=== PATIENT | male | born 1955 | race Caucasian/White ===

== ENCOUNTER 2025-04-18 08:54 | Outpatient (AMB) | payer MEDICARE, MEDICAID, SELFPAY ==
--- NOTE | 2025-04-18 09:02 | MHC.OFFVIS ---
Intake Visit Reasons: s/p UTI with urinary retention Intake Note: New patient presents today for initial visit for s/p UTI with urinary retention Urology Medication:Finasteride,Tamsulosin Blood Thinner:None Antibiotic Allergies:None PVR:30ml Allergies No Known Allergies Allergy (Verified 04/18/25 09:03) Medication List - Last Reconciled 04/18/25 by Pina Haines MD finasteride (Proscar) 5 mg PO DAILY lisinopril 20 mg PO DAILY meclizine 25 mg PO TID simvastatin 20 mg PO BEDTIME tamsulosin 0.8 mg (2 x 0.4 mg) PO DAILY HPI Comments Details: 04/18/25 History of Present Illness - The patient is a 70-year-old male presenting for a new patient evaluation with a history of benign prostatic hyperplasia. - Benign Prostatic Hyperplasia (BPH): Managed with tamsulosin and finasteride. - Urinary Retention: Patient states that episode was over 15 years ago - patient denies prior prostate surgery. States that he has had elevated PSAs in the past - was unable to provide urine sample during today's visit, bladder scan PVR minimal. - Bladder Cancer: Diagnosed about a year and a half ago, states he had a recurrence May 2024 which was followed by bladder installations. Also had follow-up surveillance 3 months cystoscopy with his prior urologist - we will have office staff try to obtain records including bladder pathology. - Surveillance: Ongoing surveillance cystoscopies are necessary to monitor for recurrence of bladder cancer. - examination-digital rectal exam, the prostate was palpated noted to be enlarged and irregular Results - Bladder scan post-void residual: 30 mL [facility] Medical History UTI (urinary tract infection) Urinary retention Hypertension High cholesterol Review of Systems Const All systems reviewed & are unremarkable except as noted in HPI and below Reports no additional complaints Eyes Reports no additional complaints ENT Reports no additional complaints Card Reports no additional complaints Resp Reports no additional complaints GI Reports no additional complaints Reports as per HPI Musc Reports no additional complaints Skin/Breast Reports system reviewed and no additional complaints, except as documented Neuro Reports no additional complaints Psych Reports no additional complaints Endo Reports no additional complaints Phillip/Lymph Reports no additional complaints Aller/Immun Reports no additional complaints Physical Exam Const General: healthy appearing, no acute distress and well developed Orientation/consciousness: patient oriented x3 HEENT Head: Yes normocephalic and Yes atraumatic Eyes Conjunctivae: conjunctivae normal Neck Neck: Yes normal visual inspection Chest Chest palpation & inspection: normal inspection of the chest Resp Effort & Inspection: normal respiratory effort GI Inspection: Yes normal to inspection Other: Exam-enlarged prostate irregular right greater than left Neuro General: patient oriented x3 Psych Appearance: grossly normal Affect: normal affect Assessment & Plan Assessment & Plan (1) BPH loc w urin obs/LUTS: Code(s): N40.1 - Benign prostatic hyperplasia with lower urinary tract symptoms Category: Medical (2) Bladder carcinoma: Code(s): C67.9 - Malignant neoplasm of bladder, unspecified Category: Medical (3) H/O primary malignant neoplasm of urinary bladder: Code(s): Z85.51 - Personal history of malignant neoplasm of bladder Category: Medical (4) Screening PSA (prostate specific antigen): Code(s): Z12.5 - Encounter for screening for malignant neoplasm of prostate Category: Medical Plan Plan - Order an ultrasound of the kidneys, bladder, and prostate to evaluate the urinary tract. - Schedule a surveillance cystoscopy to monitor for bladder cancer recurrence. - Obtain a urine sample and perform blood work for PSA levels. Orders: Orders US bladder Today N40.1 - Benign prostatic hyperplasia with lower urinary tract symptoms, Z12.5 - Encounter for screening for malignant neoplasm of prostate, Z85.51 - Personal history of malignant neoplasm of bladder US renal BI Today N40.1 - Benign prostatic hyperplasia with lower urinary tract symptoms, Z12.5 - Encounter for screening for malignant neoplasm of prostate, Z85.51 - Personal history of malignant neoplasm of bladder PSA,Total (Free>4and<10) Today N40.1 - Benign prostatic hyperplasia with lower urinary tract symptoms, Z12.5 - Encounter for screening for malignant neoplasm of prostate, Z85.51 - Personal history of malignant neoplasm of bladder Medications: New meclizine 25 mg PO TID 60 tabs 0RF simvastatin 20 mg PO BEDTIME 60 tabs 0RF tamsulosin 0.8 mg (2 x 0.4 mg) PO DAILY 180 caps 1RF enlarged prostate finasteride (Proscar) 5 mg PO DAILY 90 tabs 3RF enlarged prostate lisinopril 20 mg PO DAILY 60 tabs 0RF Patient Instructions: The patient had an opportunity to ask questions regarding treatment plan. The patient expressed understanding and agreement with the above treatment plan. The patient is aware they should contact our office by phone for worsening of their current condition or the appearance of new symptoms. Compliance is encouraged with any medications and followup testing that is ordered. It is a privilege to be allowed the opportunity to participate in the urologic care of your patient. If you have any questions or concerns regarding treatment for the above conditions please do not hesitate to contact me. The office telephone contact is [phone]. This note is constructed in part using voice recognition software. While every effort has been made to ensure accuracy single pass soil stabilizer operator errors may have been included. Yours sincerely, Pina Haines MD Scribe Plan - Not visible on output: Patient was informed and verbally consented to the use of an ambient scribe for clinic note documentation during this visit. Coding Level of Care Code New Pt Level 4 (58558) Diagnoses BPH loc w urin obs/LUTS N40.1 Bladder carcinoma C67.9 H/O primary malignant neoplasm of urinary bladder Z85.51 Screening PSA (prostate specific antigen) Z12.5
== END 2025-04-18 09:42 | disposition home or self-care (01) ==
LOC: HO.HUSH 08:55
PROVIDERS: Visit Provider Urology
DX: N40.1 Benign prostatic hyperplasia with lower urinary tract symptoms (principal); C67.9 Malignant neoplasm of bladder, unspecified; Z85.51 Personal history of malignant neoplasm of bladder; Z12.5 Encounter for screening for malignant neoplasm of prostate
CPT/HCPCS: 99204

== ENCOUNTER → 2025-04-18 08:54 | Outpatient (BNVA) | payer MEDICARE, MEDICAID, SELFPAY | PROVIDERS: Visit Provider Urology | DX: N40.1 Benign prostatic hyperplasia with lower urinary tract symptoms (principal); Z12.5 Encounter for screening for malignant neoplasm of prostate; C67.9 Malignant neoplasm of bladder, unspecified; Z85.51 Personal history of malignant neoplasm of bladder; Z79.899 Other long term (current) drug therapy | CPT/HCPCS: 99202 ==

== ENCOUNTER 2025-06-10 13:25 | Outpatient (REF) | payer MEDICARE, MEDICAID, SELFPAY ==
--- OUTSIDE RECORDS SUMMARY | 2025-06-10 13:40 | XMS_ITS | Clinical Summary ---
Author Organization [facility] Address [address] [place] [address] [address] [place] [address] Phone Care Team Providers Care Research And Development Engineer Name Role Phone Pcp, Unknown Primary Care Provider Unavailabl e Social History Tobacco Use Types Packs/Day Years Used Date Smoking Tobacco: Never Assessed Education Answer Date Recorded Are you interested in more education? Not on cynthia e 01/11/2025 Are you concerned about learning? Not on file 01/11/2025 No 01/11/2025 No 01/11/2025 Digital Access Answer Date Recorded No 01/11/2025 No 01/11/2025 Reliable internet access at home? Not on file 01/11/2025 Device with a working camera? Not on file Sex and Gender Information Value Date Recorded Sex Assigned at Male 01/14/2025 11:10 AM EDT Legal Sex Male 2:54 PM EDT Gender Identity Male 01/14/2025 11:10 AM EDT Sexual Orientation Choose not to disclose 2024 11:10 AM EDT Plan of Treatment Upcoming Encounters Date Type Department Care Team (Late st Contact Info) Description 07/03/2026 9:00 AM EDT Office Visit [facility] Medicine [address] [place] [address] Heidi Crandall 22 [facility], [address] [place] [address] [email or web address] Health Maintenance Due Date Last Done Comments Adult Td,Tdap Booster 1954 LIPID PANEL 1954 DEPRESSION SCREENING 1966 SMOKING Hx and SMOKELESS TOB ACCO SCREENING 1967 HEPATITIS C SCREENING 01/16/1972 COLOGUARD 1999 COLONOSCOPY 1999 COLORECTAL CANCER SCREENING 1999 FIT TEST 1999 FOBT 1999 SIGMOIDOSCOPY 1999 VIRTUAL COLONOSCOPY 1999 PNEUMOCOCCAL VACCINES (50+ y ears) (1 of 1 - PCV) 01/16/2004 ZOSTER VACCINES (1 of 2) 01/16/2004 COVID-19 VACCINE ( - 2023-2 5 season) 2024 INFLUENZA VACCINE (#1) 2025 RSV VACCINE (1 - 1-dose 75+ series) 2029 HEPATITIS A VACCINES Aged Out No long er eligible based on patient's age to complete this topic HIB VACCINES Aged Out No longer eligi ble based on patient's age to complete this topic MENINGOCOCCAL VACCINES (ACWY) Aged Out No longer eligible based on patient's age to complete this topic MENINGOCOCCAL VACCINES (B) Aged Out N o longer eligible based on patient's age to complete this topic Medical Devices Not on file Insurance [address] [place] [address] [facility] B [facility]IC[facility] PART A & B [facility] B MEDICARE PART A & B [facility] MEDICARE PART A & B [facility] MEDICARE PART A & B Care Teams Research And Development Engineer Relationship Specialty Start Date End Date Pcp, Unknown PCP - General 01/11/25 Additional Source Comments The information contained in this document represents components of the legal health record. It is not the complete legal health record.[facility]
[2025-06-10 15:26] LABS: PSA,Total (Free>4and<10) 6.29 ng/mL (0.00-4.00)
[2025-06-14 13:47] LABS: Free Prostate Spec Ag 1.3 ng/mL; Percent Free Prostate Spec Ag 22 % (calc) (>25)
== END 2025-06-10 13:26 | disposition home or self-care (01) ==
LOC: HO.LAB 13:25
PROVIDERS: Visit Provider Urology
DX: N40.1 Benign prostatic hyperplasia with lower urinary tract symptoms (principal); Z85.51 Personal history of malignant neoplasm of bladder; Z12.5 Encounter for screening for malignant neoplasm of prostate
CPT/HCPCS: 36415; 84153; 84154

== ENCOUNTER 2025-06-21 09:51 | Outpatient (REF) | payer MEDICARE, MEDICAID, SELFPAY ==
--- NOTE | ~2025-06-21 | US_ITS ---
CLINICAL HISTORY: N40.1 - Benign prostatic hyperplasia with lower urinary tract symptoms US Renal Comparison: None provided Findings: Right kidney normal size and echotexture, 9.4 cm length. Left kidney normal size and echotexture, 9.4 cm length. No hydronephrosis of either kidney. Urinary bladder prevoid volume 72.2 mL. Postvoid volume 29.6 mL. The right ureteral jet is not visualized. The prostate gland measures 6.3 x 3.7 x 4.4 cm with a total volume of 53.3 mL. 1.1 cm nodular echogenicity is seen along the posterior urinary bladder, which may represent median intravesicular prostatic protrusion or urinary bladder nodule. IMPRESSION: 1. Normal sonographic appearance of the kidneys. 2. Enlarged prostate gland with a total volume of 53.3 mL. 3. 1.1 cm nodular echogenicity along the posterior urinary bladder, which may represent median intravesicular prostatic protrusion or a urinary bladder nodule. Recommend correlation with cystoscopy. This document has been electronically signed by: Jesse De Jesus on 06/22/2025 08:28:13
--- OUTSIDE RECORDS SUMMARY | 2025-06-21 11:34 | XMS_ITS | Clinical Summary ---
Author Organization [facility] Address [address] [place] [address] [address] [place] [address] Phone Care Team Providers Care Chip Silo Tender Name Role Phone Pcp, Unknown Primary Care [...] [facility] Group [facility] Medicine [address] [place] [address] Heidi Crandall [address] [facility], [address] [place] [address] [email or web address] Health Maintenance Due Date Last Done [...] 01/16/2004 ZOSTER VACCINES (1 of 2) 01/16/2004 INFLUENZA VACCINE (#1) 2025 COVID-19 VACCINE (1 - 2023-2 5 season) 2025 RSV VACCINE (1 - 1-dose 75+ [...] Medical Devices Not on file Insurance [address] [place] [address] [facility] [employer] MEDICARE PART A & B MEDICARE PART A & B [facility] & B MEDICARE PART A & B [facility] MEDICARE PART A & B [facility] MEDICARE PART A & B Care Teams Chip Silo Tender Relationship Specialty Start Date End Date Pcp, Unknown PCP - General 01/11/25 Additional Source Comments The information contained in this document represents components of the legal health record. It is not the complete legal health record.[facility]
== END 2025-06-21 09:52 | disposition home or self-care (01) ==
LOC: HO.US 09:51
PROVIDERS: Visit Provider Urology
DX: N40.1 Benign prostatic hyperplasia with lower urinary tract symptoms (principal); Z85.51 Personal history of malignant neoplasm of bladder
CPT/HCPCS: 76770

== ENCOUNTER → 2025-06-21 09:54 | Outpatient (BNV) | payer MEDICARE, MEDICAID, SELFPAY | PROVIDERS: Visit Provider Radiology Vascular & Interventional Radiology | DX: N40.1 Benign prostatic hyperplasia with lower urinary tract symptoms (principal); N32.9 Bladder disorder, unspecified | CPT/HCPCS: 76770 ==

== ENCOUNTER 2025-06-27 09:12 | Outpatient (AMB) | payer MEDICARE, MEDICAID, SELFPAY ==
--- NOTE | 2025-06-27 09:30 | A.OFFVIS_ITS ---
Intake Visit Reasons: Cysto/US/UA/PSA Intake Note: Patient presents today for a cystoscopy/US/PSA * 06/10 Total PSA:6.29/Free PSA:1.3 * 06/22 [facility] US Urology Medication:Finasteride,Tamsulosin Blood Thinner:None Antibiotic Allergies:None Lot #: [id number] Exp:01/06/28 Allergies No Known Allergies Allergy (Verified 06/27/25 09:32) Medication List - Last Reconciled 06/27/25 by Pina Haines MD finasteride (Proscar) 5 mg PO DAILY lisinopril 20 mg PO DAILY meclizine 25 mg PO TID nitrofurantoin monohyd/m-cryst 100 mg (Macrobid) 100 mg PO BID 10 days simvastatin 20 mg PO BEDTIME tamsulosin 0.8 mg (2 x 0.4 mg) PO DAILY HPI Comments Details: 06/27/25--Dewey is here for office cystoscopy. He is being followed for BPH symptoms -- PSA done on 06/10/2025 which was 6.29. Renal ultrasound performed on 06/21/25--IMPRESSION: Normal sonographic appearance of the kidneys. Enlarged prostate gland with a total volume of 53.3 mL. 1.1 cm nodular echogenicity along the posterior urinary bladder, which may represent median intravesicular prostatic protrusion or a urinary bladder nodule. Cystoscopy findings: prostatic urethra trilobar enlargement, bulbous urethra WNL. Moderate Trabeculation with cellule changes, and diverticuli, no suspicious bladder lesions visualized. History of Present Illness The patient is a 70-year-old male presenting for an office cystoscopy to evaluate symptoms related to Benign Prostatic Hyperplasia (BPH). The patient has been experiencing symptoms of BPH, including difficulty with urination, for several years. He reports having to push to initiate urination but manages to void successfully. The patient is currently taking finasteride and tamsulosin daily to manage his symptoms. The patient has a history of bladder cancer, which was surgically treated. He reports that his PSA level was over 7 at the time of his cancer surgery. During the current visit, the UA- Nitrite positive suggested a possible urinary tract infection, Macrobid prescribed. Results - Labs: PSA level of 6.29 on 06/10/25 - Imaging: Renal ultrasound on 06/21/25 showed enlarged prostate with a volume of 53.3 mL and nodular echogenicity along the posterior urinary bladder Plan 1. Benign Prostatic Hyperplasia (Bph) - Continue current medication regimen with finasteride. - Consider further intervention such as green light laser, if symptoms persist, - Follow-up surveillancecystoscopy planned in three months to reassess condition. 2. Elevated Prostate-Specific Antigen (Psa) - Monitor PSA levels regularly to assess trends and potential need for further intervention. 3. Urinary Tract Infection (Suspected) Macrobid - Prescribed urine cs sent. 04/18/25 - The patient is a 70-year-old male presenting for a new patient evaluation with a history of benign prostatic hyperplasia. - Benign Prostatic Hyperplasia (BPH): Managed with tamsulosin and finasteride. - Urinary Retention: Patient states that episode was over 15 years ago - patient denies prior prostate surgery. States that he has had elevated PSAs in the past - was unable to provide urine sample during today's visit, bladder scan PVR minimal. - Bladder Cancer: Diagnosed about a year and a half ago, states he had a recurrence May 2024 which was followed by bladder installations. Also had follow-up surveillance 3 months cystoscopy with his prior urologist - we will have office staff try to obtain records including bladder pathology. - Surveillance: Ongoing surveillance cystoscopies are necessary to monitor for recurrence of bladder cancer. - examination-digital rectal exam, the prostate was palpated noted to be enlarged and irregular Results - Bladder scan post-void residual: 30 mL [facility] Medical History UTI (urinary tract infection) Urinary retention Hypertension High cholesterol Review of Systems Const All systems reviewed & are unremarkable except as noted in HPI and below Reports no additional complaints Eyes Reports no additional complaints ENT Reports no additional complaints Card Reports no additional complaints Resp Reports no additional complaints GI Reports no additional complaints Reports as per HPI Musc Reports no additional complaints Skin/Breast Reports system reviewed and no additional complaints, except as documented Neuro Reports no additional complaints Psych Reports no additional complaints Endo Reports no additional complaints Phillip/Lymph Reports no additional complaints Aller/Immun Reports no additional complaints Office Procedures Cystoscopy Consent Discussed risk and benefit or proposed procedure with the patient. Information consent for procedure given to the patient. Discussed technical aspects, risks, benefits and alternatives in full. Addressed all of the patient's questions and concerns regarding the procedure. The patient demonstrated knowledge and understanding. They wish to proceed with this procedure. Preparation The patient was prepped in the usual manner. A board writer was present and in the room. Genitalia was prepped with betadine solution in a sterile manner. Lidocaine Jelly 2% was placed into the urethra and 16Fr flexible Olympus cystoscope was inserted into the meatus after adequate lubrication. Procedure Time out per protocol performed. Speculum used as indicated for adequate visualization of urethra, the flexible cystoscope is passed transurethrally: The bladder was inspected in its entirety with utilization retroflexion displaying: Tumor(s): no suspicious bladder lesions visualized Trabeculation: Moderate with cellule changes, and diverticuli Mucosal Erthema: Mild Orifices: normal shape and position Urethra: normal Cystoscopy findings: Moderate Trabeculation with cellule changes, and diverticuli, no suspicious bladder lesions visualized [id number] DISPOSABLE SCOPE URO-G FLEXIBLE SCOPE Procedure code (CPT) selection complete Office Meds lidocaine HCl 2 % mucosal jelly in applicator Performing Provider: Pina Haines MD [place] [facility] [place] [facility] Administered by: Jeffery Low LPN on 06/27/25 09:50 Dose Route Admin Location Dispensed Lot Number Expiration Date ND Computer Lab Assistant 10 mL intra-urethral 20 mL ciprofloxacin HCl 500 mg tablet Performing Provider: Pina Haines MD Performing [place] [facility] [place] [facility] Administered by: Jeffery Low LPN on 06/27/25 09:50 Dose Route Admin Location Dispensed Lot Number Expiration Date NDC Computer Lab Assistant 500 mg PO 1 tab phenazopyridine 200 mg tablet Performing Provider: Pina Hanies MD Performing [place] [facility] [place] [facility] Administered by: Jeffery Low LPN on 06/27/25 09:50 Dose Route Admin Location Dispensed Lot Number Expiration Date NDC Computer Lab Assistant 200 mg PO 1 tab Results Reviewed Results Reviewed: Date of Service: 06/21/25 CLINICAL HISTORY: N40.1 - Benign prostatic hyperplasia with lower urinary tract symptoms US Renal Comparison: None provided Findings: Right kidney normal size and echotexture, 9.4 cm length. Left kidney normal size and echotexture, 9.4 cm length. No hydronephrosis of either kidney. Urinary bladder prevoid volume 72.2 mL. Postvoid volume 29.6 mL. The right ureteral jet is not visualized. The prostate gland measures 6.3 x 3.7 x 4.4 cm with a total volume of 53.3 mL. 1.1 cm nodular echogenicity is seen along the posterior urinary bladder, which may represent median intravesicular prostatic protrusion or urinary bladder nodule. IMPRESSION: 1. Normal sonographic appearance of the kidneys. 2. Enlarged prostate gland with a total volume of 53.3 mL. 3. 1.1 cm nodular echogenicity along the posterior urinary bladder, which may represent median intravesicular prostatic protrusion or a urinary bladder nodule. Recommend correlation with cystoscopy. Assessment & Plan Assessment & Plan (1) BPH loc w urin obs/LUTS: Code(s): N40.1 - Benign prostatic hyperplasia with lower urinary tract symptoms Category: Medical (2) Bladder carcinoma: Code(s): C67.9 - Malignant neoplasm of bladder, unspecified Category: Medical (3) H/O primary malignant neoplasm of urinary bladder: Code(s): Z85.51 - Personal history of malignant neoplasm of bladder Category: Medical (4) Screening PSA (prostate specific antigen): Code(s): Z12.5 - Encounter for screening for malignant neoplasm of prostate Category: Medical Plan Plan 1. Benign Prostatic Hyperplasia (Bph) - Continue current medication regimen with finasteride. - Consider further intervention such as green light laser, if symptoms persist, - Follow-up surveillancecystoscopy planned in three months to reassess condition. 2. Elevated Prostate-Specific Antigen (Psa) - Monitor PSA levels regularly to assess trends and potential need for further intervention. 3. Urinary Tract Infection (Suspected) Macrobid - Prescribed urine cs sent. Orders: Orders AMB Cystoscopy Today C67.9 - Malignant neoplasm of bladder, unspecified, N40.1 - Benign prostatic hyperplasia with lower urinary tract symptoms, Z85.51 - Personal history of malignant neoplasm of bladder AMB Urinalysis Automated Today Z13.9 - Encounter for screening, unspecified Urine Culture Today C67.9 - Malignant neoplasm of bladder, unspecified, Z85.51 - Personal history of malignant neoplasm of bladder Urine Cytology Today C67.9 - Malignant neoplasm of bladder, unspecified, Z85.51 - Personal history of malignant neoplasm of bladder Medications: New nitrofurantoin monohyd/m-cryst 100 mg (Macrobid) must administer with a meal/food 100 mg PO BID 20 caps 0RF 10 days Patient Instructions: The patient had an opportunity to ask questions regarding treatment plan. The patient expressed understanding and agreement with the above treatment plan. The patient is aware they should contact our office by phone for worsening of their current condition or the appearance of new symptoms. Compliance is encouraged with any medications and followup testing that is ordered. It is a privilege to be allowed the opportunity to participate in the urologic care of your patient. If you have any questions or concerns regarding treatment for the above conditions please do not hesitate to contact me. The office telephone contact is [phone]. This note is constructed in part using voice recognition software. While every effort has been made to ensure accuracy filter changing technician errors may have been included. Yours sincerely, Pina Haines MD Scribe Plan - Not visible on output: Patient was informed and verbally consented to the use of an ambient scribe for clinic note documentation during this visit. Coding Level of Care Code Est Pt Level 4 (15738) Complex EM visit Add On G2211 Diagnoses BPH loc w urin obs/LUTS N40.1 Bladder carcinoma C67.9 H/O primary malignant neoplasm of urinary bladder Z85.51 Screening PSA (prostate specific antigen) Z12.5 CPT Codes Cystoscopy - CPT: 28207-[id number] ([id number])
--- OUTSIDE RECORDS SUMMARY | 2025-06-27 10:50 | XMS_ITS | Clinical Summary ---
Author Organization [facility] Address [address] [place] [address] [address] [place] [address] Phone Care Team Providers Care Supervisor Whipped Topping Name Role Phone Pcp, Unknown Primary Care [...] EDT Office Visit [facility] Medicine [address] [place] [address] Heidi Crandall [address] [facility], [address] [place] [address] [email or web address] Health Maintenance Due Date Last Done [...] Medical Devices Not on file Insurance [address] [place] [address] [facility] A & B MEDICARE PART A & B [facility] A & B MEDICARE PART A & B [facility] MEDICARE PART A & B [facility] MEDICARE PART A & B Care Teams Supervisor Whipped Topping Relationship Specialty Start Date End Date Pcp, Unknown PCP - General 01/11/25 Additional Source Comments The information contained in this document represents components of the legal health record. It is not the complete legal health record.[facility]
== END 2025-06-27 10:28 | disposition home or self-care (01) ==
LOC: HO.HUSH 09:13
PROVIDERS: Visit Provider Urology
DX: N40.1 Benign prostatic hyperplasia with lower urinary tract symptoms (principal); C67.9 Malignant neoplasm of bladder, unspecified; Z85.51 Personal history of malignant neoplasm of bladder; Z12.5 Encounter for screening for malignant neoplasm of prostate; Z13.9 Encounter for screening, unspecified
CPT/HCPCS: 52000; 99214

== ENCOUNTER 2025-06-27 09:12 | Outpatient (REF) | payer MEDICARE, MEDICAID, SELFPAY ==
--- OUTSIDE RECORDS SUMMARY | 2025-06-27 21:13 | XMS_ITS | Clinical Summary ---
Author Organization [facility] Address [address] [place] [address] [address] [place] [address] Phone Care Team Providers Care Storage Management Consultant Name Role Phone Pcp, Unknown Primary Care [...] EDT Office Visit [facility] Medicine [address] [place] [address] Heidi Crandall [address] [facility], [address] [place] [address] [email or web address] Health Maintenance Due Date Last Done [...] Medical Devices Not on file Insurance [address] [place] [address] [facility] & B MEDICARE PART A & B [facility] MEDICARE PART A & B [facility] MED[facility] PART A & B [facility] MEDICARE PART A & B Care Teams Storage Management Consultant Relationship Specialty Start Date End Date Pcp, Unknown PCP - General 01/11/25 Additional Source Comments The information contained in this document represents components of the legal health record. It is not the complete legal health record.[facility]
== END 2025-06-27 09:13 | disposition home or self-care (01) ==
LOC: HO.LAB 09:12
PROVIDERS: Visit Provider Urology
DX: N40.1 Benign prostatic hyperplasia with lower urinary tract symptoms (principal); R39.198 Other difficulties with micturition; C67.9 Malignant neoplasm of bladder, unspecified; Z85.51 Personal history of malignant neoplasm of bladder; Z12.5 Encounter for screening for malignant neoplasm of prostate
CPT/HCPCS: 52000; 81003; 87086; 87088; 87186; 88112; 99212

== ENCOUNTER 2025-09-19 11:23 | Outpatient (REF) | payer MEDICARE, MEDICAID, SELFPAY ==
[2025-09-19 12:46] LABS: Prostate Specific Antigen 4.55 ng/mL (<0.05-4.0)
== END 2025-09-19 11:24 | disposition home or self-care (01) ==
LOC: HO.LAB 11:23
PROVIDERS: Visit Provider Urology
DX: Z12.5 Encounter for screening for malignant neoplasm of prostate (principal); N40.1 Benign prostatic hyperplasia with lower urinary tract symptoms
CPT/HCPCS: 36415; 84153